=== PATIENT | male | born 1945 | race Caucasian/White ===

== ENCOUNTER 2020-12-27 12:13 | Emergency (ER) | payer MEDICARE, SELFPAY ==
[2020-12-27 12:31] VITALS: BP 148/94; PULSE 88; RESP 16; TEMP 36.5; O2SAT 98
--- NOTE | 2020-12-27 12:59 | ED.GENADULT ---
HPI - General Adult General Chief complaint: Wound/Laceration Stated complaint: thumb laceration Time Seen by Provider: 12/27/20 12:59 Source: patient and RN notes reviewed Mode of arrival: ambulatory Limitations: no limitations History of Present Illness HPI narrative: 75-year-old male present with complaints of laceration to left thumb of left hand, caused by a knife 14 hours ago. Miki reports cutting left thumb while cutting bread at 9 PM on December 26, 2020. Pressure dressing applied to control bleeding. Takes Naproxen daily, took today with some relief. Denies focal weakness, altered sensation, fever or chills. Denies pain, numbness or tingling, or loss of mobility. No foreign body sensation. RIGHT HAND dominant hand. Tetanus NOT up-to-date, will update today. Remains active. The patient reports he have not been diagnosed with COVID-19. The patient reports he received 2 [employer] COVID-19 vaccines. The patient reports he is not waiting for the results of a COVID-19 lab test. The patient reports he do not have weakness or fatigue. The patient reports he do not have a new or worsening cough or shortness of breath. Denies chest pain. The patient reports he do not have any rhinorrhea, congestion, loss of taste or smell, sore throat, nausea, vomiting, abdominal pain, and diarrhea. Tolerating po intake well. Denies recent traveling. Denies concerns for COVID-19 or exposures been home with limited outdoor exposure except for essential household needs and return home. At this time, patient is not suspected of having COVID-19. Some parts of this dictation were generated by voice recognition software and may contain typographical and/or grammatical inaccuracies. Related Data Home Medications Medication Instructions Recorded Confirmed Concerta 12/27/20 Flomax 12/27/20 aspirin mg PO 12/27/20 loratadine 12/27/20 naproxen 12/27/20 simvastatin 12/27/20 Allergies Allergy/AdvReac Type Severity Reaction Status Date / Time No Known Allergies Allergy Verified 12/27/20 12:27 Review of Systems Review of Systems: Narrative: CONSTITUTIONAL: Denies fever, chills, sweats. EYES: Denies visual changes, redness, discharge. ENT: Denies rhinorrhea, congestion, sore throat, otalgia. CARDIOVASCULAR: Denies chest pain, palpitations, edema. RESPIRATORY: Denies dyspnea, wheezing, cough. GASTROINTESTINAL: Denies abdominal pain, nausea, vomiting, or diarrhea. SKIN: Denies rash or itching. Complains of laceration to thumb (1st finger) on left hand. MUSCULOSKELETAL: Denies acute back pain, joint pain, or myalgia. NEUROLOGIC: Denies numbness or focal weakness. PSYCHIATRIC: Denies anxiety or depression. All other systems reviewed & are unremarkable except as noted in HPI and below. [facility] Past Medical History Medical History (Updated 12/28/20 @ 00:00 by Aleks Berry) Benign prostatic hyperplasia Cyst Hypercholesteremia Narcolepsy Surgical History Surgical History (Updated 12/27/20 @ 13:23 by THANIA Tejeda) History of removal of cyst Drain from the liver 15 years ago Family History Family History (Updated 12/27/20 @ 13:24 by THANIA Tejeda) Father , Old age Unknown family medical history Mother Hypertension Social History Social History (Updated 12/27/20 @ 13:26 by THANIA Tejeda) Smoking status: Former smoker Tobacco type: cigarettes Second hand tobacco smoke exposure: No Smoking end date: 08/18/00 Alcohol intake: current Drinks per week: 3 Alcohol use details: Miki reports having wine 2 to 3 times a week Substance use: never Living arrangements: with family Occupation/Education: retired Gender identity (if verbalized by the patient): Male Comments At time of signature, agree with nurse past medical, surgical, social, and family history. There is no relevant family history pertinent to the presenting complaint. Exam Narrati
[2020-12-27] MEDS: TETANUS,DIPHTHERIA,AC PERTUSSIS ADULT (0.5 ML) BOOSTRIX IM (13:18)
== END 2020-12-27 13:40 | disposition home or self-care (01) ==
PROVIDERS: Emergency Provider Nurse Practitioner Family; PCP Internal Medicine
DX: S61.012A Laceration without foreign body of left thumb without damage to nail, initial encounter (principal); W26.0XXA Contact with knife, initial encounter; Z23 Encounter for immunization; Z87.891 Personal history of nicotine dependence; N40.0 Benign prostatic hyperplasia without lower urinary tract symptoms; E78.00 Pure hypercholesterolemia, unspecified; G47.419 Narcolepsy without cataplexy
CPT/HCPCS: 12001; 90471; 90715; 99213; G0463